=== PATIENT | male | born 1955 | race Caucasian/White ===

== ENCOUNTER 2022-08-02 20:59 | Emergency (ER) | payer OTHER ==
[2022-08-02 21:04] VITALS: TEMP 98.6; BMI 27.3
[2022-08-02] MEDS ORDERED: KETOROLAC TROMETHAMINE 30 MG/1 ML VIAL IM ONE (22:03)
[2022-08-02] MEDS ORDERED: KETOROLAC TROMETHAMINE 30 MG/1 ML VIAL ONE (22:05)
[2022-08-02] MEDS ORDERED: LIDOCAINE HCL 1%, 10 MG/ML (50 mL VIAL) SQ ONE (23:41)
[2022-08-02] MEDS ORDERED: LIDOCAINE HCL 1%, 10 MG/ML (20ML VIAL) ONE (23:41)
[2022-08-03 00:11] VITALS: BP 147/87; PULSE 104; RESP 16
== END 2022-08-03 01:00 | disposition home or self-care (01) ==
LOC: JERFT 20:59
PROC: 3E0233Z Introduction of Anti-inflammatory into Muscle, Percutaneous Approach (ICD-10-PCS; principal; 2022-08-02)
DX: S62.101A Fracture of unspecified carpal bone, right wrist, initial encounter for closed fracture (principal); W07.XXXA Fall from chair, initial encounter
CPT/HCPCS: 73110-TC-RT-FY; 73130-TC-RT-FY; 99285-25